=== PATIENT | male | born 1990 | race Caucasian/White ===

== ENCOUNTER → 2019-09-09 13:16 | Outpatient (CLI) | payer OTHER, MEDICAID, SELFPAY ==
[2019-09-10 08:03] LABS: COVID19 Sendout Not Detected (Not Detect)
== END ==
PROVIDERS: Visit Provider Physician Assistant
DX: Z03.818 Encounter for observation for suspected exposure to other biological agents ruled out (principal)
CPT/HCPCS: 87635